=== PATIENT | male | born 1990 | race African-American/Black ===

== ENCOUNTER 2018-12-29 18:31 | Emergency (ER) | payer MEDICAID ==
[~2018-12-29] VITALS: Ht 180.3 cm; Wt 72.0 kg
[2018-12-29] MEDS ORDERED: IBUPROFEN 800MG TABLET PO ONE (23:15)
[2018-12-30 00:39] VITALS: BP 110/63
== END 2018-12-30 00:42 | disposition home or self-care (01) ==
LOC: ER 18:31
DX: M54.5 Low back pain (principal); M25.512 Pain in left shoulder; M25.551 Pain in right hip; R51 Headache; V49.9XXA Car occupant (driver) (passenger) injured in unspecified traffic accident, initial encounter; Y93.89 Activity, other specified; Y92.89 Other specified places as the place of occurrence of the external cause; Y99.8 Other external cause status
CPT/HCPCS: 73502; 99283

== ENCOUNTER 2021-10-10 14:24 | Emergency (ER) | payer MEDICAID, OTHER ==
[~2021-10-10] VITALS: Ht 177.8 cm; Wt 75.0 kg
[2021-10-10] MEDS ORDERED: ASPIRIN 81MG TABLET PO ONE (14:45)
[2021-10-10 15:38] LABS: BASOPHILS % 0.4 % (0.0-2.0); EOSINOPHILS % 0.6 % (0.0-5.0); HEMATOCRIT. 45.2 % (42.0-52.0); HEMOGLOBIN. 15.8 g/dL (14.0-18.0); LYMPHOCYTES % 7.9 % (20.0-50.0); MEAN CORPUSCULAR HEMOGLOBIN 30.1 pg (28.0-32.0); MEAN CORPUSCULAR VOLUME 86.2 fL (80.0-94.0); MONOCYTES % 11.1 % (2.0-8.0); PLATELET 207 x1000/uL (130-400); RED BLOOD CELL COUNT 5.24 mill/uL (4.7-6.1); RED CELL DISTRIBUTION WIDTH 12.7 % (11.6-14.6)
[2021-10-10 15:44] LABS: CHLORIDE 104 mEq/L (98-107)
[2021-10-10] MEDS ORDERED: MAGNESIUM/ALUMINUM HYDROXIDE/SIMETHICONE 30ML UDC PO STA (17:05)
[2021-10-10] MEDS ORDERED: FAMOTIDINE 20MG TABLET PO ONE (17:15)
[2021-10-10] MEDS ORDERED: KETOROLAC 60MG/2ML VIAL IM ONE (17:15)
[2021-10-10] MEDS ORDERED: SODIUM CHLORIDE 0.9% 1,000 ML IV ONE (17:15)
[2021-10-10] MEDS ORDERED: FAMO-135 MT (18:48)
[2021-10-10] MEDS ORDERED: IBUP-2029 MT (18:48)
[2021-10-10 19:05] VITALS: BP 109/70
== END 2021-10-10 19:30 | disposition home or self-care (01) ==
LOC: ER 14:24
DX: M94.0 Chondrocostal junction syndrome [Tietze] (principal)
CPT/HCPCS: 36415; 71045; 80053; 83690; 84484; 85025; 93005; 96360; 96372; 99285; J1885; J7030